=== PATIENT | female | born 1970 | race Caucasian/White ===

== ENCOUNTER 2016-09-21 16:46 | Emergency (ER) | payer MEDICAID ==
[2016-09-21 17:51] VITALS: BP 119/80; PULSE 87; TEMP 97.8
--- NOTE | 2016-09-21 18:19 | EDPRACDOC ---
- General Information Stated Complaint: MED REFILL Time Seen by Provider: 09/21/16 17:55 Home Medications: Home Medications Albuterol Sulfate [Proair Hfa] 2 puff INH Q4H PRN 12/18/14 Citalopram (anti-depressant) [Celexa] 40 mg PO DAILY 12/18/14 Levetiracetam [Keppra] 500 mg PO BID #30 tablet 12/18/14 Amoxicillin/Potassium Clav [Augmentin 500-125 Tablet] 1 each PO DAILY 12/24/14 Buspirone HCl [Buspar] 10 mg PO BID 12/24/14 Omeprazole [Prilosec] 40 mg PO DAILY #30 capsule. 12/24/14 Ondansetron HCl [Zofran] 4 mg PO Q6H PRN #20 tab 12/24/14 Oxycodone Immediate Release [Oxycodone Immediate Release (OxyIR)] 5 mg PO Q6H PRN #30 tab 12/24/14 Prednisone [Deltasone, Orasone] 40 mg PO DAILY 12/24/14 Sucralfate [Carafate] 1 gm PO AC #10 tablet 12/24/14 Alprazolam [Xanax] 1 mg PO TID #21 tablet 09/21/16 Oxycodone Immediate Release [Oxycodone Immediate Release (OxyIR)] 10 mg PO TID # 21 tab 09/21/16 Pseudoephedrine [Sudafed] 120 mg PO BID #14 crc 09/21/16 Allergies/Adverse Reactions: Allergies Allergy/AdvReac Type Severity Reaction Status Date / Time divalproex sodium Allergy Angioedema* Verified 12/24/14 19:40 [From Depakote] haloperidol [From Haldol] Allergy See Verified 12/24/14 19:40 Comments haloperidol lactate Allergy See Verified 12/24/14 19:40 [From Haldol] Comments - History of Present Illness HPI: PT PRESENTS TODAY REQUESTING REFILLS ON XANAX AND OXYCODONE. PT FOLLOWS ISAURO PERES WHO IS OUT FOR THE WEEK. THIS HAS BEEN CONFIRMED AND WE HAVE SEEN DOZENS OF PTS FOR THIS REASON ALREADY. PT ALSO C/O URI INCLUDING SORE THROAT, NASAL CONGESTION. DENIES FEVER, GUTIERRES, DIZZINESS, CP, SHOB, ABD PAIN, N/V/D. NO APPARENT DISTRESS. Context: Reports: Ran out of Medication Medication for: Reports: Pain, Psychiatric Pain: Reports: None ED Past Medical History - History Reviewed Yes Nurses notes reviewed and agree except as marked - Patient Medical History Neurological History: Reports: Seizures Cardiac History: Reports: Heart Attack Respiratory History: Reports: COPD - Social Medical History Smoking Status: Heavy tobacco smoker (5 or more cigarettes/day or daily pipe/ cigar) EDM Review of Systems - Review of Systems ROS Negative Except as Marked: Yes All systems reviewed and were negative except as marked Constitutional: No Symptoms Reported Eyes: No Symptoms Reported Ears: No Symptoms Reported Throat: Pain Nose: Congestion Respiratory: No Symptoms Reported Cardiovascular: No Symptoms Reported Gastrointestinal: No Symptoms Reported Neurological: No Symptoms Reported Musculoskeletal: No Symptoms Reported Integumentary: No Symptoms Reported Psychiatric: No Symptoms Reported - Physical Exam Constitutional: Alert (Awake), No apparent distress Oriented to: Time, Person, Place Last recorded Vital Signs: Last Vital Signs Temp 97.8 F 09/21/16 17:51 Pulse 87 09/21/16 17:51 Resp 20 09/21/16 17:51 BP 119/80 09/21/16 17:51 Pulse Ox 96 09/21/16 17:51 Oxygen Pulse Oxygen Saturation 96 O2 Device Oxygen Flow Rate Fraction of Inspired Oxygen ( FIO2) - HEENT Head: Normal Eye Exam: Normal Oropharynx: Red Tympanic Membrane: Normal ENT EAC: Normal Nose: Congestion Neck: Normal, Denies Pain, Midline - Respiratory/Cardiovascular Respiratory: Normal - CTA Cardiovascular: Normal - GI Palpation: Normal Tenderness: Non tender - Musculoskeletal Back: Normal Extremities: Normal - Integumentary Skin: Normal Lymphatics: Normal - Neurologic Cerebellar: Normal Mood Description: Normal Thought: Coherent Perception: Normal Decision Time to Discharge: 18:15 - Departure Disposition: Home Condition: Good Final Diagnosis: URI with cough and congestion Instructions: Medicine Refill (ED) Education/Counseling Given To: Patient Education/Counseling Given Regarding: Diagnosis, Treatment, Follow Up Referrals: Isauro Peres MD [Primary Care Provider] - One Week Prescriptions: Alprazolam [Xanax] 1 mg PO TID #21 tablet Oxycodone Immediate Release [Oxycodone Immediate Release (OxyIR)] 10 mg PO TID # 21 tab Pseudoephedrine [Sudafed] 120 mg PO BID #14 crc Forms: Primary / Family Care Contact Additional Instructions: PLEASE FOLLOW UP WITH PCP.
== END 2016-09-21 18:26 | disposition home or self-care (01) ==
LOC: EDMC 16:46
DX: J06.9 Acute upper respiratory infection, unspecified (principal)
CPT/HCPCS: 99282